=== PATIENT | male | born 1990 | race Asian ===

== ENCOUNTER 2021-12-20 07:27 | Day surgery (SDC) | payer OTHER ==
[~2021-12-20] VITALS: Ht 167.6 cm; Wt 61.2 kg
[2021-12-20] MEDS ORDERED: diphenhydrAMINE 50 MG/ML VIAL ONE (08:42)
[2021-12-20] MEDS ORDERED: fentaNYL citrate 0.05 MG/ML VIAL ONE (08:42)
[2021-12-20] MEDS ORDERED: MIDAZOLAM 2 MG/2 ML VIAL ONE (08:42)
[2021-12-20] MEDS ORDERED: LIDOCAINE 2% 100 MG/5 ML UJET TP ONE (08:43)
[2021-12-20] MEDS ORDERED: fentaNYL citrate 0.05 MG/ML VIAL IVP ONE (11:20)
[2021-12-20] MEDS ORDERED: MIDAZOLAM 2 MG/2 ML VIAL IVP ONE (11:20)
== END 2021-12-20 10:55 | disposition home or self-care (01) ==
LOC: MMU 07:27 → MDS 07:27
PROVIDERS: ATTEND Internal Medicine Gastroenterology
DX: K62.5 Hemorrhage of anus and rectum (principal); D12.3 Benign neoplasm of transverse colon; K57.30 Diverticulosis of large intestine without perforation or abscess without bleeding; K29.70 Gastritis, unspecified, without bleeding; K29.80 Duodenitis without bleeding; Z80.0 Family history of malignant neoplasm of digestive organs; Z20.822 Contact with and (suspected) exposure to COVID-19; Z79.899 Other long term (current) drug therapy
CPT/HCPCS: 36415; 43239; 45385; 86677; 87426; J2250; J3010; J1200